=== PATIENT | female | born 1955 | race Caucasian/White ===

== ENCOUNTER → 2017-01-28 | Outpatient (CLI) | payer BC ==
--- OUTSIDE RECORDS SUMMARY | 2017-01-28 12:16 | XMS REPORT | Continuity of Care Document ---
Author Author [facility] Organization [facility] Address Unknown Phone Unavailable Care Team Providers Care Attorney Name Role Phone HANSA GODINEZ MD PCP Insurance Providers Payer Name Policy Number [id number] Self / Same As Patient Advance Directives Directive Response Recorded Date/Time Advance Directives No 05/04/12 7:10am Organ Donor Yes 05/04/12 7:10am Problems No known problems or medical conditions. Medications No known medications. Social History No social history. Hospital Discharge Instructions No hospital discharge instructions. Plan of Care No plan of care. Functional Status No functional status results. Allergies, Adverse Reactions, Alerts Allergen Type Severity Reaction Status Last Updated No Known Drug Allergies Active 05/04/12 Immunizations No immunization records. Vital Signs No known vital signs results. Results Test Source Date Result Interp. Ref. Range Comments Troponin I August 31, 2009 12:57pm < 0.10 NG/ML 0.00-0.10 PT IN OUTPT AREA Procedures No known history of procedures. Encounters Encounter Location Date/Time Registered Clinic [facility] 10/13/14 7:56pm
--- NOTE | 2017-01-28 22:48 | Diagnostic Imaging Report ---
EXAMINATION: Right breast digital diagnostic mammogram with CAD. The current study was also evaluated with a Computer Aided Detection (CAD) system. INDICATION: Followup medial right breast calcifications. COMPARISON: 05/21/16. FINDINGS: The breasts are composed of scattered fibroglandular densities. There are medial calcifications again seen slightly increased with minimal heterogeneity in the right breast. Some of the calcifications have increased coarse appearance in favor of benign etiology. IMPRESSION: Likely benign minimally increased calcification group in the medial aspect of the right breast. Another followup in six months to continue observing these calcifications is recommended. ACR BI-RADS Category 3: Probably benign findings. Result letter will be mailed to the patient. Note: At least 10% of breast cancer is not imaged by mammography. Dictated by: Dictated on workstation # [id number]
== END ==
LOC: RAD 12:14
PROVIDERS: ATTEND Internal Medicine
DX: R92.1 Mammographic calcification found on diagnostic imaging of breast (principal)

== ENCOUNTER → 2017-08-26 | Outpatient (CLI) | payer BC ==
--- NOTE | 2017-08-26 18:55 | Diagnostic Imaging Report ---
Bilateral diagnostic mammogram with tomography. INDICATION: Followup right medial calcifications. COMPARISON: 01/28/2017. The current study was also evaluated with a Computer Aided Detection (CAD) system. FINDINGS: The breasts are composed of scattered fibroglandular densities. Calcifications in the medial aspect of the right breast are again noted with minimal heterogeneity seen. There is no associated mass noted. No significant change from 01/28/2017. IMPRESSION: Stable likely benign calcifications in the medial aspect of the right breast from prior exams. No adverse development. Four-month followup mammogram is recommended to ensure further stability. ACR BI-RADS Category 3: Probably benign findings. Result letter will be mailed to the patient. Note: At least 10% of breast cancer is not imaged by mammography. Dictated by: Dictated on workstation # [id number]
== END ==
LOC: RAD 13:04
PROVIDERS: ATTEND Internal Medicine
DX: R92.0 Mammographic microcalcification found on diagnostic imaging of breast (principal)
CPT/HCPCS: 77066

== ENCOUNTER → 2017-12-23 | Outpatient (CLI) | payer BC ==
--- NOTE | 2017-12-23 08:33 | Diagnostic Imaging Report ---
INDICATION: 4 month followup of right breast calcifications. COMPARISON: 08/26/2017, 01/28/2017, and 05/03/2016. TECHNIQUE: Digital diagnostic mammography was performed of the right breast with a Computer Aided Detection (CAD) system. FINDINGS: The right breast is primarily involutional. A cluster of calcifications in the medial aspect of the right breast appears stable. No mass is identified. No new calcifications are seen. The right axilla is unremarkable. IMPRESSION: Stable right breast calcifications. These show 18 months of stability. The patient should return for one more 6 month followup to confirm stability. ACR BI-RADS Category 3: Probably benign findings. Result letter will be mailed to the patient. Note: At least 10% of breast cancer is not imaged by mammography. Dictated by: Dictated on workstation # [id number]
== END ==
LOC: RAD 07:51
PROVIDERS: ATTEND Internal Medicine
DX: R92.1 Mammographic calcification found on diagnostic imaging of breast (principal)

== ENCOUNTER → 2017-12-29 | Outpatient (CLI) | payer BC ==
--- NOTE | 2017-12-29 12:32 | Diagnostic Imaging Report ---
PROCEDURE: MRI left upper extremity without contrast. TECHNIQUE: Multiplanar, multisequence non contrast-enhanced MRI of the left upper extremity was accomplished. INDICATION: Shoulder pain. FINDINGS: There is moderate arthrosis of the acromioclavicular joint. There is also some increased T2 signal intensity within the joint which may reflect some acute inflammation. There is secondary ascension of the humeral head with respect to the glenoid compatible with some early chronic rotator cuff degeneration. There is tendinopathy of the supraspinatus tendon as well as a full-thickness rim-rent tear of the distal anterior fibers of the supraspinatus tendon. There is some tendinopathy of the infraspinatus tendon. The subscapularis and teres minor appear to be intact. There is a shoulder joint effusion as well as some extension of fluid in the subacromial subdeltoid bursa. Labrum is somewhat truncated superiorly likely due to chronic maceration from the humeral head. There are bone anchors in the lateral humeral head. There appears to be degenerative cyst in the superior glenoid. IMPRESSION: 1. 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 Additionally, there is arthrosis and edema in the AC joint likely reflecting some acute inflammation. 2. Full-thickness rim-rent tear of the anterolateral fibers of the supraspinatus tendon without retraction of myotendinous junction medially. There is also tendinopathy of both the supraspinatus and infraspinatus tendons. 3. Shoulder joint effusion with extension into the subacromial and subdeltoid bursa. 4. Truncation of the superior labrum likely on a degenerative basis. There is also degenerative cyst formation in the glenoid. Dictated by: Dictated on workstation # [id number]
== END ==
LOC: RAD 09:22
PROVIDERS: ATTEND Orthopaedic Surgery
DX: S46.012A Strain of muscle(s) and tendon(s) of the rotator cuff of left shoulder, initial encounter (principal); M19.012 Primary osteoarthritis, left shoulder; M25.412 Effusion, left shoulder; M85.40 Solitary bone cyst, unspecified site
CPT/HCPCS: 73221

== ENCOUNTER 2018-01-01 22:02 | Emergency (ER) | payer BC ==
[~2018-01-01] VITALS: Ht 167.6 cm; Wt 80.7 kg
[2018-01-01] MEDS ORDERED: RX-ONDANSETRON 4 MG ODT (ZOFRAN) PPK #4 PO STA (22:51)
[2018-01-01] MEDS ORDERED: RX-OSELTAMIVIR 75 MG (TAMIFLU) BOX OF 10 PO STA (22:51)
--- NOTE | 2018-01-01 22:55 | ED Cough/URI ---
General Chief Complaint: Cough/Cold/Flu Symptoms Stated Complaint: COUGH/FEVER/HEADACHE Nursing Triage Note: patient states that she started getting a sore throat yesterday. today she has body aches and chills and a headache. she has had a fever as high as 102 today. Source: patient Exam Limitations: no limitations History of Present Illness Date Seen by Provider: Jan 01, 2018 Time Seen by Provider: 22:52 Initial Comments To ER with reports of sudden onset sore throat, high fever, body aches chills and cough this morning. Otherwise healthy without comorbidities. She is only been taking Tylenol as she doesn't want to get an ulcer from the ibuprofen Timing/Duration: constant Severity/Quality: dry cough Associated Symptoms: cough, fever/chills, sore throat Allergies and Home Medications Allergies Coded Allergies: No Known Drug Allergies (Unverified , 05/04/12) Constitutional: see HPI EENTM: see HPI Respiratory: see HPI, cough Cardiovascular: no symptoms reported Genitourinary: no symptoms reported Musculoskeletal: no symptoms reported Skin: no symptoms reported Psychiatric/Neurological: No Symptoms Reported Past Etytjfq-Pkxzin-Lctuuc Hx Patient Social History Alcohol Use: Denies Use Recreational Drug Use: No Smoking Status: Never a Smoker 2nd Hand Smoke Exposure: No Recent Foreign Travel: No Contact w/Someone Who Travel: No Recent Infectious Disease Expo: No Recent Hopitalizations: No Seasonal Allergies Seasonal Allergies: No Surgeries History of Surgeries: Yes (shoulder surgeries x3) Respiratory History of Respiratory Disorde: No Cardiovascular History of Cardiac Disorders: No Neurological History of Neurological Disord: No Gastrointestinal History of Gastrointestinal Di: No Musculoskeletal History of Musculoskeletal Dis: Yes (TAKES GLUCOSAMIN/CHONDROITIN FOR JOINT PAIN) Endocrine History of Endocrine Disorders: Yes (HYPOTHYROIDISM) Integumentary History of Skin or Integumenta: No Physical Exam Vital Signs Vital Sign - Last 12Hours 01/01/18 22:26 Temp 100.6 Pulse 93 Resp 20 B/P (MAP) 106/77 (87) Pulse Ox 95 Capillary Refill : Less Than 3 Seconds General Appearance: WD/WN, no apparent distress Eyes: Bilateral Eye Normal Inspection, Bilateral Eye PERRL, Bilateral Eye EOMI HEENT: PERRL/EOMI, normal ENT inspection Neck: non-tender, full range of motion Respiratory: no respiratory distress, no accessory muscle use Cardiovascular: regular rate, rhythm, no murmur Gastrointestinal: normal bowel sounds, non tender Extremities: normal range of motion, non-tender Neurologic/Psychiatric: alert, normal mood/affect, oriented x 3 Skin: normal color, warm/dry Progress/Results/Core Measures Suspected Sepsis Recent Fever Within 48 Hours: Yes Infection Criteria Present: Suspected New Infection New/Unexplained Altered Menta: No Sepsis Screen: Possible Sepsis Risk Sepsis Diagnosis: SIRS Temperature:100.6 Pulse: 93 Respiratory Rate: 20 Blood Pressure 106 /77 Mean: 87 Results/Orders My Orders Orders - MADIE JUNG APRN Influenza A And B Antigens (01/01/18 22:46) Chest 1 View, Ap/Pa Only (01/01/18 22:46) Rx-Ondansetron Po (Rx-Zofran Po) (01/01/18 22:51) Rx-Oseltamivir Caps (Rx-Tamiflu Caps) (01/01/18 22:51) Promethazine/ Codeine Syrup (Phenergan W (01/01/18 23:00) Vital Signs/I&O Vital Sign - Last 12Hours 01/01/18 22:26 Temp 100.6 Pulse 93 Resp 20 B/P (MAP) 106/77 (87) Pulse Ox 95 Capillary Refill : Less Than 3 Seconds Blood Pressure Mean: 87 Departure Impression Impression: Primary Impression: Influenza Disposition: 01 HOME, SELF-CARE Condition: Stable Departure-Patient Inst. Decision time for Depature: 22:53 Referrals: HANSA GODINEZ MD (PCP/Family) Primary Care Physician Patient Instructions: Flu, Adult (DC) Add. Discharge Instructions: 1. Return to ER for any worsening symptoms such as shortness of breath 2. Tylenol as needed for fever control. Use orgm-rdm-bujsrgc DayQuil or NyQuil for symptom control as well but beware this does have some Tylenol and it so do not exceed 4 g of Tylenol per day which would be 4000 mg. 3. Take the Tamiflu 1 tablet twice daily as directed. If this causes nausea that is intolerable as this is a known potential side effect, simply stop the Tamiflu. Symptoms typically persist about 5-7 days. Work/School Note: Work Release Form Date Seen in the Emergency Department: Jan 01, 2018 Return to Work: Jan 06, 2018 MADIE JUNG APRN Jan 01, 2018 22:55
[2018-01-01] MEDS ORDERED: PROMETHAZINE/ CODEINE SYRUP 5 ML UDC PO ONE (23:00)
[2018-01-01 23:44] VITALS: BP 106/77
--- NOTE | 2018-01-02 06:00 | Diagnostic Imaging Report ---
INDICATION: Body aches and fever. There are no prior studies available for comparison. FINDINGS: The heart size is within normal limits. There are a few crowded bronchovascular markings in the right infrahilar region, but the lungs are generally clear. There is no sign of failure, pneumonia, or pleural effusion. The mediastinum is not widened. The osseous structures are intact. Surgical screws are seen overlying each humeral head. IMPRESSION: There is no evidence for an acute cardiopulmonary abnormality. Dictated by: Dictated on workstation # [id number]
== END 2018-01-01 23:43 | disposition home or self-care (01) ==
LOC: EDUNIT# 22:02 → ER 22:03
DX: J11.1 Influenza due to unidentified influenza virus with other respiratory manifestations (principal); E03.9 Hypothyroidism, unspecified
CPT/HCPCS: 71045; 87804; 99283

== ENCOUNTER → 2018-10-06 | Outpatient (CLI) | payer BC ==
--- NOTE | 2018-10-06 13:38 | Diagnostic Imaging Report ---
INDICATION: Six-month followup of right breast calcifications. COMPARISON: Correlation is made with the prior mammogram from 12/23/2017 as well as 08/26/2017. TECHNIQUE: 2D and 3D bilateral diagnostic mammography was performed with CAD. FINDINGS: Scattered fibroglandular densities are identified bilaterally. A cluster of calcifications in the inner aspect of the right breast at mid depth is again noted. The calcifications appear to be coarse and rounded in appearance suggesting benign calcifications. No associated soft tissue mass is seen. No pleomorphism or casting is seen. The left breast is stable. The axillae are unremarkable. IMPRESSION: Stable bilateral mammograms without mammographic features of malignancy. The patient can return to routine annual screening mammography. ACR BI-RADS Category 2: Benign findings. Result letter will be mailed to the patient. Note: At least 10% of breast cancer is not imaged by mammography. Dictated by: Dictated on workstation # [id number]
== END ==
LOC: RAD 12:56
PROVIDERS: ATTEND Internal Medicine
DX: R92.1 Mammographic calcification found on diagnostic imaging of breast (principal)
CPT/HCPCS: 77066

== ENCOUNTER → 2020-04-30 | Outpatient (CLI) | payer BC ==
--- NOTE | 2020-04-30 13:43 | Diagnostic Imaging Report ---
EXAMINATION: Digital mammogram bilateral screening with CAD. INDICATION: Screening. COMPARISON: This study was compared to the prior exams of 10/06/2018, 12/23/2017, and 08/26/2017. PERSONAL HISTORY: At this time, there are no current complaints. FINDINGS: The breasts are predominantly fatty. When compared to the prior study, there has been no significant change. The calcifications in the right breast seen previously appear stable. There is no primary or secondary sign of malignancy noted. IMPRESSION: There is no evidence for malignancy. ACR BI-RADS Category 1: Negative. Result letter will be mailed to the patient. Note: At least 10% of breast cancer is not imaged by mammography. Dictated by: Dictated on workstation # [id number]
== END ==
LOC: RAD 09:39
PROVIDERS: ATTEND Internal Medicine
DX: Z12.31 Encounter for screening mammogram for malignant neoplasm of breast (principal)
CPT/HCPCS: 77063; 77067

== ENCOUNTER → 2022-01-24 | Outpatient (CLI) | payer MEDICARE, OTHER ==
[~2022-01-24] MED LIST: GADOTERATE 0.5 MMOL/ML (CLARISCAN) 20 ML VIAL IV ONE
--- NOTE | 2022-01-24 10:50 | Diagnostic Imaging Report ---
PROCEDURE: MRI lumbar spine with and without contrast. TECHNIQUE: Multiplanar, multisequence MRI of the lumbar spine was performed with and without contrast. INDICATION: Low back pain. FINDINGS: The alignment of the lumbar spine is normal. The vertebral body heights are well-maintained. There is no spondylolysis or spondylolisthesis. No fractures are identified. The conus medullaris is seen at L1 and is normal in appearance. T12-L1: Unremarkable. L1-L2: Unremarkable. L2-L3: Unremarkable. L3-L4: There is some slight loss of disc height and signal intensity with mild facet disease. There is mild bilateral neuroforaminal encroachment. L4-L5: There is minimal annular bulging and facet disease. There is slight effacement of the ventral thecal sac and mild to moderate bilateral neuroforaminal encroachment. L5-S1: There is some annular bulging. There is some mild encroachment on the left lateral recess. There is minimal left neuroforaminal encroachment. The aorta is nonaneurysmal. IMPRESSION: Mild lower lumbar spondylosis as described without significant spinal or neuroforaminal encroachment. Dictated by: Dictated on workstation # [id number]
== END ==
LOC: RAD 09:12
PROVIDERS: ATTEND Nurse Practitioner Family
DX: M47.816 Spondylosis without myelopathy or radiculopathy, lumbar region (principal); M51.27 Other intervertebral disc displacement, lumbosacral region; M48.07 Spinal stenosis, lumbosacral region; M51.36 Other intervertebral disc degeneration, lumbar region; G83.10 Monoplegia of lower limb affecting unspecified side; G57.91 Unspecified mononeuropathy of right lower limb
CPT/HCPCS: 72158

== ENCOUNTER → 2022-04-01 | Outpatient (CLI) | payer MEDICARE, OTHER ==
--- NOTE | 2022-04-01 14:58 | Diagnostic Imaging Report ---
Indication: Routine screening. Comparison is made with prior mammogram 04/30/2020 and 10/06/2018. 2-D and 3-D bilateral screening mammography was performed with CAD. Both breasts are primarily involutional. Benign calcifications right breast appears stable. No mass or malignant-appearing microcalcifications are identified. Axillae are unremarkable. IMPRESSION: BI-RADS Category 2 No mammographic features suspicious for malignancy are identified. ACR BI-RADS Category 2: Benign findings. Result letter will be mailed to the patient. Note: At least 10% of breast cancer is not imaged by mammography. Dictated by: Dictated on workstation # [id number]
--- NOTE | 2022-04-01 17:43 | Diagnostic Imaging Report ---
INDICATION: Postmenopausal state. COMPARISON: None available. FINDINGS: AP Spine L1-L4: [BMD (g/cm2): 1.023] [T-Score: -1.5] [Z-Score: -0.4] [BMD Previous: na] [BMD % Change: na] LT Hip Neck: [BMD (g/cm2): 0.859] [T-Score: -1.3] [Z-Score: -0.1] LT Hip Total: [BMD (g/cm2):0.939] [T-Score:-0.5] [Z-Score: 0.3] [BMD Previous: na] [BMD % Change: na] RT Hip Neck: [BMD (g/cm2):0.780] [T-Score:-1.9] [Z-Score:-0.7] RT Hip Total: [BMD (g/cm2):0.866] [T-score:-1.1] [Z-Score:-0.3] [BMD Previous:na] [BMD % Change:na] *Indicates significant change from prior examination based on 95% confidence level. World Health Organization criteria for BMD interpretation classify patients as Normal (T-score at or above -1.0), Osteopenic (T-score between -1.0 and -2.5) or Osteoporotic (T-score at or below -2.5). LIMITATIONS AND MODIFICATION: None. FRACTURE RISK (FRAX SCORE): The ten year probability of (%): Major Osteoporotic Fracture: [10.0] Hip Fracture: [1.4] IMPRESSION: 1. Osteopenia (Low bone mass). 2. Baseline examination. 3. See below National Osteoporosis Foundation guidelines on when to potentially initiate pharmacologic therapy. Based on the National Osteoporosis Foundation Guidelines, pharmacologic treatment should be initiated in any of the following, unless clinical conditions suggest otherwise: * Any patient with prior fragility fracture of the hip or vertebrae. A spine fracture indicates 5X risk for subsequent spine fracture and 2X risk for subsequent hip fracture. * Osteoporosis (T-score <-2.5). * Postmenopausal women and men age 50 and older with low bone mass/osteopenia (T-score between -1.0 and -2.5) by DXA and 10-year major osteoporotic fracture greater than 20% or a 10-year probability of hip fracture greater than 3%. These fracture risks are supplied above in the FRAX score, if applicable. * Clinician judgement and/or patient preferences may indicate treatment for people with 10-year fracture probabilities above or below these levels. Dictated by: Dictated on workstation # [id number]
== END ==
LOC: RAD 13:15
PROVIDERS: ATTEND Nurse Practitioner Family
DX: Z12.31 Encounter for screening mammogram for malignant neoplasm of breast (principal); M85.88 Other specified disorders of bone density and structure, other site; Z78.0 Asymptomatic menopausal state
CPT/HCPCS: 77063; 77067; 77080

== ENCOUNTER 2022-10-20 05:47 | Outpatient (CLI) | payer MEDICARE, OTHER ==
[~2022-10-20] VITALS: Ht 165.1 cm; Wt 78.0 kg
[2022-10-21] MEDS ORDERED: FLUT9.9S NS (14:26)
[2022-10-21] MEDS ORDERED: MELO7.5T46 PO (14:26)
[2022-10-21] MEDS ORDERED: ESOM20CA37 PO (14:26)
[2022-10-21] MEDS ORDERED: MONT-40 PO (14:26)
[2022-10-21] MEDS ORDERED: LORA1TAB48 PO (14:26)
[2022-10-21] MEDS ORDERED: ESCI-2 PO (14:26)
[2022-10-21] MEDS ORDERED: LEVO75TA6 PO (14:26)
== END 2022-10-21 14:29 ==
LOC: PREOP 05:47
PROVIDERS: ATTEND Internal Medicine
DX: Z01.818 Encounter for other preprocedural examination (principal); Z12.11 Encounter for screening for malignant neoplasm of colon; R10.13 Epigastric pain

== ENCOUNTER 2022-10-24 21:24 | Emergency (ER) | payer MEDICARE, OTHER ==
[~2022-10-24] VITALS: Ht 167 cm; Wt 78.0 kg
[~2022-10-24 21:24] MED LIST changes: +ESCI-2 PO; +ESOM20CA37 PO; +FLUT9.9S NS; -GADOTERATE 0.5 MMOL/ML (CLARISCAN) 20 ML VIAL IV ONE; +LEVO75TA6 PO; +LORA1TAB48 PO; +MELO7.5T46 PO; +MONT-40 PO
[2022-10-24] MEDS ORDERED: TRAM100T40 PO (23:06)
--- NOTE | 2022-10-24 23:07 | ED Fall/Injury ---
General Chief Complaint: Trauma-Non Activation Stated Complaint: FALL CHEST/RIB PAIN Nursing Triage Note: FALL AT HOME, SEE TRAUMA ASSESSMENT (ALMAS PEARSON APRN) History of Present Illness Date Seen by Provider: Oct 24, 2022 Time Seen by Provider: 21:40 Initial Comments Patient is a 66-year-old female who presents to the emergency department for evaluation of anterior chest pain as well as posterior head pain after mechanical fall at home at approximately 4 PM today. Patient states that she tripped over a step causing her to fall forward. She states she hit her anterior chest on another step and afterwards flipped over causing her to strike the back of her head against the concrete. She denies any loss of consciousn ess. She states she did have some mild headache that has since resolved. Denies any vision change or nausea/vomiting. She has increased pain in her anterior chest with deep inspiration, cough, laughing, or palpation. States the chest pain is her primary concern. States she had a lump on the back of her head that has since markedly decreased in size after she applied some ice. She denies any other pain or injury at this time Location Injury Occurred: HOME (ALMAS PEARSON APRN) Allergies and Home Medications Allergies Coded Allergies: No Known Drug Allergies (Unverified , 05/04/12) Patient Home Medication List Home Medication List Reviewed: Yes (ALMAS PEARSON APRN) Escitalopram Oxalate (Escitalopram Oxalate) 10 Mg Tablet, 10 MG PO, (Reported) Entered as Reported by: ELANA NEWBY on 10/21/221425 Esomeprazole Magnesium (Esomeprazole Magnesium) 20 Mg Capsule.dr, 20 MG PO, (Reported) Entered as Reported by: ELANA NEWBY on 10/21/221425 Fluticasone Propionate (Flonase Allergy Relief) 50 Mcg/Actuation [place].susp, 2 SPRAY NS DAILY, (Reported) Entered as Reported by: ELANA NEWBY on 10/21/221425 Levothyroxine Sodium (Levothyroxine Sodium) 75 Mcg Tablet, 75 MCG PO, (Reported) Entered as Reported by: ELANA NEWBY on 10/21/221425 Loratadine/Pseudoephedrine (Loratadine-D 24Hr Tablet) 10 Mg-240 Mg Tab.er.24h, 1 EACH PO, (Reported) Entered as Reported by: ELANA NEWBY on 10/21/22 1426 Meloxicam (Meloxicam) 7.5 Mg Tablet, 7.5 MG PO, (Reported) Entered as Reported by: ELANA NEWBY on 10/21/22 142 Montelukast Sodium (Montelukast Sodium) 10 Mg Tablet, 10 MG PO, (Reported) Entered as Reported by: ELANA NEWBY on 10/21/22 142 Tramadol HCl (Tramadol HCl) 100 Mg Tablet, 100 MG PO Q6H PRN for PAIN-MODERATE (5-7) Prescribed by: Almas Pearson on 10/24/22 2307 Review of Systems Review of Systems Constitutional: no symptoms reported Eyes: No Symptoms Reported Ears, Nose, Mouth, Throat: no symptoms reported Respiratory: no symptoms reported Cardiovascular: see HPI, chest pain Gastrointestinal: no symptoms reported Genitourinary: no symptoms reported Musculoskeletal: no symptoms reported Skin: no symptoms reported Psychiatric/Neurological: See HPI, Headache (ALMAS PEARSON APRN) Past Yaxbchu-Xtpgjl-Ijimqd Hx Patient Social History Tobacco Use?: No Use of E-Cig and/or Vaping dev: No Substance use?: No Alcohol Use?: Yes Alcohol type: Wine Pt feels they are or have been: No (ALMAS PEARSON APRN) Immunizations Up To Date First/Initial COVID19 Vaccinat: YES Second COVID19 Vaccination Geremias: YES Third COVID19 Vaccination Date: 3RD BOOSTER (ALMAS PEARSON APRN) Seasonal Allergies Seasonal Allergies: Yes (ALMAS PEARSON APRN) Past Medical History Surgery/Hospitalization HX: ANXIETY APPY SHOULDER X4 Surgeries: Yes (shoulder surgeries x4) Appendectomy Respiratory: No Cardiac: No Neurological: No Genitourinary: No Gastrointestinal: No Ulcer Musculoskeletal: Yes (CHRONIC JOINT PAIN) Arthritis, Chronic Back Pain Endocrine: Yes Hypothyroidsim HEENT: No Cancer: No Psychosocial: Yes Depression Integumentary: No Blood Disorders: No (ALMAS PEARSON APRN) Physical Exam Vital Signs Vital Signs - First Documented 10/24/22 21:37 Temp 36.7 Pulse 73 Resp 20 B/P (MAP) 138/69 (92) Pulse Ox 99 O2 Delivery Room Air (ANASTACIO,RADHA K DO) Vital Signs Capillary Refill : Less Than 3 Seconds (ALMAS PEARSON APRN) Height, Weight, BMI Height: 5'6.00" Weight: 178lbs. 0oz. 80.323915sm; 27.00 BMI Method:Stated General Appearance: WD/WN, no apparent distress HEENT: PERRL/EOMI, normal ENT inspection, TMs normal, pharynx normal Neck: non-tender, full range of motion, supple, normal inspection Cardiovascular: regular rate, rhythm Respiratory: lungs clear, normal breath sounds, no respiratory distress, no accessory muscle use Gastrointestinal: normal bowel sounds, non tender, soft Extremities: normal range of motion, non-tender Neurologic/Psychiatric: no motor/sensory deficits, alert, normal mood/affect, oriented x 3 Skin: normal color, warm/dry Mild lower anterior tenderness to palpation of the chest; small hematoma noted to the right occipital scalp (ALMAS PEARSON APRN) Daphne Coma Score Best Eye Response: (4) Open Spontaneously Best Verbal Response: (5) Oriented Best Motor Response: (6) Obeys Commands Trey Total: 15 (ALMAS PEARSON APRN) Progress/Results/Core Measures Results/Orders Vital Signs/I&O 10/24/22 10/24/22 21:37 23:20 Temp 36.7 Pulse 73 67 Resp 20 20 B/P (MAP) 138/69 (92) 132/80 Pulse Ox 99 97 O2 Delivery Room Air Room Air (ANASTACIO,RADHA K DO) Blood Pressure Mean: 92 Progress Progress Note : Progress Note Patient is nontoxic and well-hydrated on exam. No adventitious lung sounds or increased work of breathing noted. Patient does have some tenderness to palpation about the lower anterior chest. No bony deformity, crepitus, or subcutaneous air appreciated on exam. Patient does have a small hematoma to her right occipital scalp without bogginess or underlying bony deformity. No focal neurologic deficits appreciated. Patient was ambulatory to the room without issue. She is awake alert and answering all questions appropriately. CT of the head is acutely negative. Two view x-ray of the chest is acutely negative also. Will discharge home with recommendations for supportive care and close follow- up with PCP. Return precautions for urgent symptomology discussed. Patient verbalized understanding. (ALMAS PEARSON APRN) Departure Impression Primary Impression: Chest wall contusion Qualified Codes: S20.211A - Contusion of right front wall of thorax, initial encounter Additional Impression: Hematoma of occipital region of scalp Disposition: 01 HOME, SELF-CARE Condition: Stable Departure-Patient Inst. Decision time for Depature: 23:05 (ALMAS PEARSON APRN) Referrals: HANSA GODINEZ MD (PCP/Family) Primary Care Physician Patient Instructions: Rib Fracture or Bruised Rib ED, Minor Head Injury (DC) Scripts Tramadol HCl (Tramadol HCl) 100 Mg Tablet 100 MG PO Q6H PRN for PAIN-MODERATE (5-7), #15 TAB 0 Refills Prov: ALMAS PEARSON APRN 10/24/22 ATTENDING PHYSICIAN NOTE: I WAS PHYSICALLY PRESENT ER PHYSICIAN, BUT I WAS NOT INVOLVED IN ANY DECISION MAKING OR ANY CARE OF THIS PATIENT, AND I AM NOT COLLABORATING PHYSICIAN. (RADHA CHAVES DO) ALMAS PEARSON APRN Oct 24, 2022 23:07 RADHA CHAVES DO Oct 28, 2022 05:08
[2022-10-24 23:20] VITALS: BP 132/80
--- NOTE | 2022-10-25 06:51 | Diagnostic Imaging Report ---
EXAMINATION: Chest 2 view HISTORY: Chest pain after fall COMPARISON: None available. FINDINGS: Heart size and pulmonary vasculature are normal. The lungs are clear without consolidation, pleural effusion, or pneumothorax. The osseous structures are intact. IMPRESSION: 1. No acute radiographic abnormality in the chest. Dictated by: Dictated on workstation # [id number]
--- NOTE | 2022-10-25 07:10 | Diagnostic Imaging Report ---
EXAMINATION: CT head without contrast. TECHNIQUE: Multiple contiguous axial images were obtained through the brain without the use of intravenous contrast. All CT scans use one or more of the following dose optimizing techniques: automated exposure control, MA and/or KvP adjustment based on patient size and exam type or iterative reconstruction. HISTORY: Head pain after fall COMPARISON: None available. FINDINGS: The ventricles and sulci are normal. No abnormal attenuation of brain parenchyma is present. No acute intracranial hemorrhage or abnormal extra-axial fluid collections are present. Calcification of the intracranial ICAs. No hyperdense vessel. The calvarium is intact. The mastoid air cells are clear. The visualized paranasal sinuses are clear. The orbits are normal. IMPRESSION: 1. No acute intracranial abnormality.. 2. Agree with preliminary interpretation. Dictated by: Dictated on workstation # [id number]
== END 2022-10-24 23:20 | disposition home or self-care (01) ==
LOC: EDUNIT# 21:24 → ER 21:25
DX: S00.03XA Contusion of scalp, initial encounter (principal); S20.219A Contusion of unspecified front wall of thorax, initial encounter; W01.198A Fall on same level from slipping, tripping and stumbling with subsequent striking against other object, initial encounter; Y92.009 Unspecified place in unspecified non-institutional (private) residence as the place of occurrence of the external cause
CPT/HCPCS: 70450; 71046

== ENCOUNTER 2022-12-24 07:05 | Outpatient (CLI) | payer MEDICARE, OTHER ==
[~2022-12-24] VITALS: Ht 165.1 cm; Wt 78.5 kg
[~2022-12-24 07:05] MED LIST changes: -FLUT9.9S NS; +FLUT9.9S NSEACH; +TRAM100T40 PO
[2022-12-24] MEDS ORDERED: LEVO112T55 PO (09:20)
[2022-12-24] MEDS ORDERED: FAMO20TA3 PO (09:20)
== END 2022-12-24 09:23 | disposition home or self-care (01) ==
LOC: PREOP 07:05
PROVIDERS: ATTEND Internal Medicine
DX: Z01.818 Encounter for other preprocedural examination (principal)

== ENCOUNTER 2023-01-02 09:06 | Day surgery (SDC) | payer MEDICARE, OTHER ==
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
[~2023-01-02] VITALS: Ht 165.1 cm; Wt 78.5 kg
[~2023-01-02 09:06] MED LIST changes: +FAMO20TA3 PO; +LEVO112T55 PO
[2023-01-02] MEDS ORDERED: LACTATED RINGERS 1,000 ML IV STA (09:11)
[2023-01-02] MEDS ORDERED: HURRICAINE EXT TUBE (BENZOCAINE) XX PRN (09:15)
[2023-01-02 09:30] VITALS: BP 131/97
--- NOTE | 2023-01-02 09:51 | Pre-Op Note & Conscious Sedat ---
Pre-Operative Progress Note Date H&P Reviewed: Jan 02, 2023 Time H&P Reviewed: 09:50 History & Physical: H&P Reviewed, Patient Examed, No changes noted Pre-Op Diagnosis: screening colon epigastric pain Conscious Sedation Pre-Proced ASA Score 2 For ASA 3 and 4: Consider anesthesia and medical clearance. Also, for patients with a history of failed moderate sedation consider anesthesia. Airway Lungs Heart ASA score ASA 1: a normal healthy patient ASA 2: a patient with a mild systemic disease (mid diabetes, controlled hypertension, obesity ASA 3: a patient with a severe systemic disease that limits activity (angina, COPD, prior Myocardial infarction) ASA 4: a patient with an incapacitating disease that is a constant threat to life (CHF, renal failure) ASA 5: a moribund patient not expected to survive 24 hrs. (ruptured aneurysm) ASA 6: a declared brain- patient whose organs are being harvested. For emergent operations, add the letter E after the classification Mallampati Classification Grade 2 Sedation Plan Analgesia, Amnesia, Plan communicated to team members, Discussed options with patient/fam, Discussed risks with patient/fam The patient is an appropriate candidate to undergo the planned procedure, sedation, and anesthesia. The patient immediately re-assessed prior to indication. HANSA GODINEZ MD Jan 02, 2023 09:51
[2023-01-02] MEDS ORDERED: MIDAZOLAM 2 MG/2 ML (VERSED) VIAL ONE (10:25)
[2023-01-02] MEDS ORDERED: PROPOFOL INJECTION 50 ML IV ONE ×2 (10:25→11:22)
[2023-01-02] MEDS ORDERED: SIMETHICONE 40 MG/0.6 ML (MYLICON DROPS) 30 ML BTL GT PRN (11:15)
[2023-01-02] MEDS ORDERED: SIMETHICONE 40 MG/0.6 ML (MYLICON DROPS) 30 ML BTL ONE (11:22)
[2023-01-02 11:25] VITALS: BP 114/70
[2023-01-02 11:30] VITALS: BP 118/73
--- NOTE | 2023-01-02 11:34 | Progress Note-Post Operative ---
Post-Procedure Note Physician (s)/Junior Programmer Analyst (s) Physician HANSA GODINEZ MD Pre-Procedure Diagnosis Pre-Procedure Diagnosis: screening colon epigastric pain Post-Procedure Diagnosis Post-operative diagnosis: The endoscope was inserted in the oral cavity and under direct visitation the esophagus intubated. The Thee was passed on esophagus to the stomach and second portion of the duodenum. A careful inspection was made as the endoscope was withdrawn. Findings: Posterior pharynx and true and false vocal folds were unremarkable as was the epiglottis and the arytenoid aperture. The proximal midesophagus were unremarkable. There is approximate 2 cm hiatal hernia/several centimeters of the distal esophagus were above the level of diaphragm could not rule out the possibility of Hidalgo's without evidence for erosive esophagitis. Biopsies were obtained and submitted for histopathology. The cardia of the stomach was unremarkable several 3 to 4 mm fundal appearing polyps are noted in the fundus which is otherwise unremarkable. The antrum pylorus pyloric channel duodenal bulb and second portion were unremarkable except for rather polyp prominent antral fold biopsies was obtained and submitted for histopathology. A/P 1. Approximate 2 cm hiatal hernia is present and cannot rule out the possibility of short segment Hidalgo's without evidence for erosive esophagitis. Biopsies were taken and pending at the time of dictation. There was a prominent antral fold for which a biopsy is pending as well further recommendations for potential surveillance EGD pending. We then proceeded with colonoscopy. Prior to undergoing colonoscopy digital rectal evaluation was performed. Anal sphincter tone was normal and the perianal reflexes intact. No abnormalities noted on digital inspection anal canal or distal rectal vault. The colonoscope was inserted into the rectum and direct physician advanced the cecum. The cecum was identified by indication of the Ileocecal valveand cecal strap. Photographic activation obtained. Quality the prep was unfortunately suboptimal. 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 There were no evidence for internal or external hemorrhoids in the rectum sigmoid colon descending colon transverse colon ascending colon and cecum were otherwise unremarkable with no evidence for neoplasia unfortunately under suboptimal prep conditions. For this reason consider repeat colonoscopy in 5 years. HANSA GODINEZ MD Jan 02, 2023 11:34
[2023-01-02 11:35] VITALS: BP 117/58
[2023-01-02 11:56] VITALS: BP 117/58
--- NOTE | 2023-01-02 12:10 | Anesthesia-General Post-Op ---
MAC Patient Condition Mental Status/LOC: Same as Preop Cardiovascular: Satisfactory Nausea/Vomiting: Absent Respiratory: Satisfactory Pain: Controlled Complications: Absent Post Op Complications Complications None Follow Up Care/Instructions Patient Instructions None needed. Anesthesiology Discharge Order Discharge Order Patient is doing well, no complaints, stable vital signs, no apparent adverse anesthesia problems. No complications reported per nursing. ARAMIS VELEZ CRNA Jan 02, 2023 12:10
== END 2023-01-02 12:25 | disposition home or self-care (01) ==
LOC: ENDO 09:06
PROVIDERS: ATTEND Internal Medicine
DX: Z12.11 Encounter for screening for malignant neoplasm of colon (principal); K44.9 Diaphragmatic hernia without obstruction or gangrene; K31.7 Polyp of stomach and duodenum; K63.89 Other specified diseases of intestine; K31.89 Other diseases of stomach and duodenum; K29.70 Gastritis, unspecified, without bleeding; K21.00 Gastro-esophageal reflux disease with esophagitis, without bleeding; Z79.899 Other long term (current) drug therapy
CPT/HCPCS: 43239; G0121; 88305